=== PATIENT | female | born 1990 ===

== ENCOUNTER 2018-10-17 02:59 | Inpatient (IN) | payer BC, MEDICAID ==
[~2018-10-17] VITALS: Ht 157.5 cm; Wt 71.8 kg
[2018-10-17] VITALS (14 sets, daily range): BP systolic 102–134; BP diastolic 57–77; PULSE 73–96; TEMP 98.1–98.2
[2018-10-17 03:37] LABS: BASO % 0.2 % (0.0-2.0); EOS # 0.1 (0.0-0.7); EOS % 1.3 % (0-4.0); GRAN # 6.6 (1.4-6.5); GRAN % 70.6 % (42.2-75.2); HEMOGLOBIN 11.2 g/dl (12.5-16.0); LYMPH # 1.6 (1.2-3.4); MEAN CELL VOLUME 94 fl (80.0-100.0); MEAN CORPUSCULAR HEMOGLOBIN 32 pg (27.0-31.0); MEAN CORPUSCULAR HGB CONC 34 g/dl (33.0-37.0); MEAN PLATELET VOLUME 9.1 fl (7.4-10.4); MONO % 10.3 % (1.7-9.3); PLATELET COUNT 240 K/mm3 (130-400); RED BLOOD COUNT 3.54 M/mm3 (4.10-5.30); REDCELL DISTRIBUTION WIDTH-CV 13.2 % (11.5-14.5)
[2018-10-17 03:40] LABS: HEMATOCRIT 33.1 % (37.0-47.0)
[2018-10-17] MEDS ORDERED: PRENATAL MVI (03:54)
--- NOTE | 2018-10-17 05:00 | NUR ---
0300- Patient ambulatory from ED with this RN and to LDR-4 for labor check. Patient and spouse oriented to labor room and patient into restroom to void and change into gown. 0310- EFM and TOCO on and tracing. Patient has complaints of contractions since 0000 with increasing intensity. Patient believes SROM happened between 0000 and 0100 with clear fluid. Patient denies any bleeding or spotting. 0315- SVE 5--1. at L&D desk and updated. Admit orders received. 0330- IV started. LR bolus infusing. Patient is requesting an epidural and VIJAY Jung on unit and notified. 0335- VIJAY Jung at bedside. Patient repositioned to sitting upright for epidural placement. 0345- Single Shot. 0355- Patient is having no relief with contractions with epidural. and VIJAY Jung at bedside. SVE 6/-1 by MD. 0405- Patient continues to scream out during contractions. at bedside. SVE /-1 by . VSS. 0415- Patient continues to scream with contractions. and VIJAY Jung remain at the bedside. SVE 8/90/-1 by MD. 0430- SVE Anterior Lip. 0435- SVE Complete/0 by MD. Labor room set up for delivery. 0440- Patient begins pushing with contractions with MD. Patient is screaming out with each contraction in pain. 0452- of viable baby boy. Shoulder dystocia resolved with [place] after 52 seconds and delivery of posterior arm. Cord clamped and cut. Cord blood obtained. True knot present. 0458- Spontaneous delivery of intact placenta. 1st degree perineal laceration noted. Fundus massaged to firm by . Pericare completed. Ice pack applied. 0500- PP Recovery started. 0530- Patient complaining of increased pain in perineum and screams out during fundal checks. 0540- Motrin 600mg given. See eMAR.
[2018-10-18 08:15] VITALS: BP 113/65; PULSE 84; TEMP 98.6
[2018-10-18] MEDS ORDERED: MOTRIN 600600 MG/TAB PO (09:09)
[2018-10-18] MEDS ORDERED: PERCOCET 325 MG1 TA2 PO (09:10)
--- NOTE | 2018-10-18 09:11 | NUR ---
Initial visit; Parents thanked Felt Hanger for offering congratulations and God's blessings for the of their son. Felt Hanger thanked family for choosing [facility].
== END 2018-10-18 12:30 | disposition home or self-care (01) | DRG 807 ==
LOC: LDRO 02:59 → LDR 03:02 → LDRO 03:14 → LDR 03:15 → OB 08:11
PROVIDERS: Obstetrics & Gynecology; ADMIT Obstetrics & Gynecology
PROC: 10E0XZZ Delivery of Products of Conception, External Approach (ICD-10-PCS; principal; 2018-10-17)
PROC: 0HQ9XZZ Repair Perineum Skin, External Approach (ICD-10-PCS; 2018-10-17)
DX: O69.2XX0 Labor and delivery complicated by other cord entanglement, with compression, not applicable or unspecified (principal); Z37.0 Single live birth; O66.0 Obstructed labor due to shoulder dystocia; Z3A.39 39 weeks gestation of pregnancy; O70.0 First degree perineal laceration during delivery
CPT/HCPCS: J2400; J2590; J2795; J7120